=== PATIENT | male | born 1950 | race Caucasian/White ===

== ENCOUNTER 2021-11-27 16:29 | Inpatient (IN) | payer OTHER ==
[~2021-11-27] VITALS: Ht 167.6 cm; Wt 66.2 kg
[~2021-11-27 16:29] MED LIST: ETOMIDATE 2MG/ML 10ML VIAL IV ONE; SUCCINYLCHOLINE CHLORIDE 200MG/10ML IV ONE
[2021-11-27] MEDS ORDERED: SODIUM CHLORIDE 0.9% 1000ML BAG (SEPSIS BOLUS) IV ONE (16:45)
[2021-11-27] MEDS ORDERED: PROPOFOL 10MG/ML 100ML 100 ML IV ONE ×2 (16:45→19:30)
[2021-11-27] MEDS ORDERED: SUCCINYLCHOLINE CHLORIDE 200MG/10ML IV ONE (16:45)
[2021-11-27] MEDS ORDERED: ETOMIDATE 2MG/ML 10ML VIAL IV ONE (16:45)
[2021-11-27] MEDS ORDERED: ACETAMINOPHEN 650MG SUPP PR ONE (16:45)
[2021-11-27 16:59] LABS: BASOPHILS % 0.7 % (0.0-2.0); EOSINOPHILS % 6.5 % (0.0-5.0); HEMATOCRIT. 48.7 % (42.0-52.0); HEMOGLOBIN. 16.1 g/dL (14.0-18.0); LYMPHOCYTES % 27.4 % (20.0-50.0); MEAN CORPUSCULAR HEMOGLOBIN 29.6 pg (28.0-32.0); MEAN CORPUSCULAR VOLUME 89.7 fL (80.0-94.0); MEAN PLATELET VOLUME 7.9 fl (7.4-10.4); MONOCYTES % 7.4 % (2.0-8.0); PLATELET 300 x1000/uL (130-400); RED BLOOD CELL COUNT 5.43 mill/uL (4.7-6.1); RED CELL DISTRIBUTION WIDTH 13.4 % (11.6-14.6)
[2021-11-27 17:07] LABS: CHLORIDE 101 mEq/L (98-107)
[2021-11-27 17:15] LABS: CREATINE KINASE 375 IU/L (39-308)
[2021-11-27] MEDS ORDERED: MIDAZOLAM 100MG/100ML PREMIX IV PRN (17:30)
[2021-11-27] MEDS ORDERED: MIDAZOLAM HCL 100 MG in DEXT 5% WATER 80 ML IV ONE (17:30)
[2021-11-27] MEDS ORDERED: FENTANYL CITRATE/PF 50MCG/ML 2ML VIAL IV ONE ×2 (17:30)
[2021-11-27] MEDS ORDERED: IPRATROPIUM/ALBUTEROL 0.5-3(2.5)MG/3ML NEB HHN ONE (17:30)
[2021-11-27 17:53] LABS: BG CARBOXYHEMOGLOBIN 0.3 % (0.5-1.5); BG DEOXYHEMOGLOBIN 0.6 % (0.0-5.0); BG FRACTION INSPIRED OXYGEN 100; BG HCO3 ACT 25.4 mmol/L (22.0-26.0); BG METHEMOGLOBIN 0.5 % (0.0-1.5); BG OXYGEN SATURATION 99.4 % (92.0-98.5); BG OXYHEMOGLOBIN 98.6 % (94.0-97.0); BG PCO2 64.5 mmHg (35.0-45.0); BG PH 7.213 (7.350-7.450); BG PO2 484.7 mmHg (75.0-100.0); BG SAMPLE SITE RIGHT RADIAL; BG TOTAL HEMOGLOBIN 16.2 g/dL (12.0-18.0); BG VENT MODE VENT - AC
[2021-11-27] MEDS ORDERED: DOCUSATE SODIUM 100MG CAPSULE PO PRN (21:00)
[2021-11-27] MEDS ORDERED: ALBUTEROL 6.7GM HFA INHALER ORI PRN (21:00)
[2021-11-27] MEDS ORDERED: ACETAMINOPHEN 325MG TABLET PO PRN (21:00)
[2021-11-27] MEDS ORDERED: MAGNESIUM/ALUMINUM HYDROXIDE/SIMETHICONE 30ML UDC PO PRN (21:00)
[2021-11-27] MEDS ORDERED: NITROGLYCERIN 0.4MG TABLET SL SL PRN (21:00)
[2021-11-27] MEDS ORDERED: NOREPINEPHRINE 8 MG in DEXT 5% WATER 242 ML IV PRN (21:00)
[2021-11-27] MEDS ORDERED: IPRATROPIUM/ALBUTEROL 0.5-3(2.5)MG/3ML NEB NEB PRN (21:00)
[2021-11-27] MEDS ORDERED: GUAIFENESIN 200MG/10ML SUGAR FREE UDC PO PRN (21:00)
[2021-11-27] MEDS ORDERED: FENTANYL CITRATE/PF 2,500 MCG in SODIUM CHLORIDE 0.9% 200 ML IV PRN (21:30)
[2021-11-27] MEDS ORDERED: PHENYLEPHRINE 100 MG in DEXT 5% WATER 240 ML IV PRN (21:45)
[2021-11-27] MEDS ORDERED: METHYLPREDNISOLONE SOD SUCC 125 MG/2 ML VIAL IV ONE (21:45)
[2021-11-27] MEDS ORDERED: MAGNESIUM 2 G PREMIX 50 ML IV ONE (21:45)
[2021-11-27] MEDS ORDERED: ALBUTEROL 6.7GM HFA INHALER ORI SCH (22:00)
[2021-11-27] MEDS ORDERED: ENOXAPARIN 40MG/0.4ML SYR SUBCUT SCH (22:00)
[2021-11-27] MEDS ORDERED: PIPERACILLIN/TAZ 3.375G PREMIX 50 ML IV SCH (22:00)
[2021-11-27] MEDS: METHYLPREDNISOLONE SOD SUCC 125 MG/2 ML VIAL IV SCH (22:00)
[2021-11-27 22:20] LABS: BG BASE EXCESS -2.3 mmol/L (-2.0-2.0); BG CARBOXYHEMOGLOBIN 0.3 % (0.5-1.5); BG DEOXYHEMOGLOBIN 0.4 % (0.0-5.0); BG FRACTION INSPIRED OXYGEN 100; BG HCO3 ACT 24.3 mmol/L (22.0-26.0); BG METHEMOGLOBIN 0.5 % (0.0-1.5); BG OXYGEN SATURATION 99.6 % (92.0-98.5); BG OXYHEMOGLOBIN 98.8 % (94.0-97.0); BG PCO2 48.2 mmHg (35.0-45.0); BG PO2 436.1 mmHg (75.0-100.0); BG SAMPLE SITE RIGHT RADIAL; BG TOTAL HEMOGLOBIN 15.4 g/dL (12.0-18.0); BG VENT MODE VENT - AC
[2021-11-27] MEDS: FENTANYL CITRATE/PF 2,500 MCG in SODIUM CHLORIDE 0.9% 200 ML IV PRN (22:23)
[2021-11-27 23:14] LABS: TOTAL IRON BINDING CAPACITY 380 ug/dL (250-450)
[2021-11-27] MEDS ORDERED: VANCOMYCIN 1 G PREMIX 200 ML IV NR (23:30)
[2021-11-27 23:32] LABS: CHLORIDE 104 mEq/L (98-107)
[2021-11-27 23:44] LABS: CREATINE KINASE MB FRACTION 18.9 ng/mL (0.5-3.6)
[2021-11-27 23:53] LABS: CREATINE KINASE 2296 IU/L (39-308)
[2021-11-28] VITALS (58 sets, daily range): BP systolic 85–163; BP diastolic 59–104
[2021-11-28] MEDS: DEXT 5%/LACTATED RINGERS 1,000 ML IV SCH ×2 (01:20→18:13)
[2021-11-28] MEDS: IPRATROPIUM/ALBUTEROL 0.5-3(2.5)MG/3ML NEB HHN SCH ×7 (02:00→23:51)
[2021-11-28] MEDS: PHENYLEPHRINE 100 MG in DEXT 5% WATER 240 ML IV PRN ×3 (02:17→16:17)
[2021-11-28 08:09] LABS: BG BASE EXCESS -0.1 mmol/L (-2.0-2.0); BG CARBOXYHEMOGLOBIN 0.4 % (0.5-1.5); BG DEOXYHEMOGLOBIN 0.6 % (0.0-5.0); BG HCO3 ACT 26.9 mmol/L (22.0-26.0); BG METHEMOGLOBIN 0.6 % (0.0-1.5); BG OXYGEN SATURATION 99.4 % (92.0-98.5); BG OXYHEMOGLOBIN 98.4 % (94.0-97.0); BG PCO2 52.1 mmHg (35.0-45.0); BG SAMPLE SITE RIGHT RADIAL; BG VENT MODE VENT - AC
[2021-11-28] MEDS ORDERED: PANTOPRAZOLE SODIUM 40 MG/VIAL IV SCH (09:00)
[2021-11-28] MEDS ORDERED: ASPIRIN 325MG EC TABLET PO SCH (09:00)
[2021-11-28] MEDS: PIPERACILLIN/TAZOBACTAM 3.375 G in DEXTROSE 5% WATER 50 ML IV SCH ×3 (09:22→22:20)
[2021-11-28] MEDS: ENOXAPARIN 80MG/0.8ML SYR SUBCUT SCH ×2 (09:23→22:23)
[2021-11-28] MEDS: METHYLPREDNISOLONE SOD SUCC 125 MG/2 ML VIAL IV SCH ×3 (09:23→22:20)
[2021-11-28 09:56] LABS: CHLORIDE 103 mEq/L (98-107)
[2021-11-28 09:58] LABS: BASOPHILS % 0.6 % (0.0-2.0); EOSINOPHILS % 3.7 % (0.0-5.0); HEMOGLOBIN. 14.5 g/dL (14.0-18.0); MEAN CORPUSCULAR HEMOGLOBIN 29.7 pg (28.0-32.0); MEAN CORPUSCULAR VOLUME 90.2 fL (80.0-94.0); MEAN PLATELET VOLUME 8.3 fl (7.4-10.4); MONOCYTES % 10.7 % (2.0-8.0); PLATELET 257 x1000/uL (130-400); RED BLOOD CELL COUNT 4.88 mill/uL (4.7-6.1); RED CELL DISTRIBUTION WIDTH 13.3 % (11.6-14.6)
[2021-11-28 10:02] LABS: PHOSPHORUS 3.7 mg/dL (2.5-4.9)
[2021-11-28 10:08] LABS: CREATINE KINASE MB FRACTION 13.8 ng/mL (0.5-3.6)
[2021-11-28] MEDS: MIDAZOLAM HCL 100 MG in SODIUM CHLORIDE 0.9% 80 ML IV PRN (10:11)
[2021-11-28 10:20] LABS: CREATINE KINASE 2742 IU/L (39-308)
[2021-11-28] MEDS: VANCOMYCIN 750 MG PREMIX 150 ML IV SCH ×3 (11:08→22:22)
[2021-11-28] MEDS: LORATADINE 10MG TABLET PO SCH (14:22)
[2021-11-28 15:09] LABS: *AMPHETAMINES SCREEN URINE NEGATIVE (NEGATIVE); *BARBITURATES SCREEN URINE NEGATIVE (NEGATIVE); *BENZODIAZEPINES SCREEN URINE PRESUMTIVE POSITIVE (NEGATIVE); CANNABINOID URINE SCREEN NEGATIVE (NEGATIVE)
[2021-11-28 15:10] LABS: *COCAINE SCREEN URINE NEGATIVE (NEGATIVE); METHADONE URINE SCREEN NEGATIVE (NEGATIVE); OPIATES URINE SCREEN NEGATIVE (NEGATIVE); PHENCYCLIDINE URINE SCREEN NEGATIVE (NEGATIVE)
[2021-11-28] MEDS: FENTANYL CITRATE/PF 2,500 MCG in SODIUM CHLORIDE 0.9% 200 ML IV PRN (15:28)
[2021-11-28] MEDS: MONTELUKAST SODIUM 10MG TABLET PO SCH (17:19)
[2021-11-28] MEDS: ATORVASTATIN CALCIUM 20MG TABLET PO SCH (22:21)
[2021-11-28] MEDS: FAMOTIDINE 20MG/2ML VIAL IV SCH (22:21)
[2021-11-29] VITALS (76 sets, daily range): BP systolic 85–178; BP diastolic 60–108
[2021-11-29] MEDS: IPRATROPIUM/ALBUTEROL 0.5-3(2.5)MG/3ML NEB HHN SCH ×6 (03:08→23:38)
[2021-11-29] MEDS: DEXT 5%/LACTATED RINGERS 1,000 ML IV SCH ×2 (05:27→14:02)
[2021-11-29] MEDS: METHYLPREDNISOLONE SOD SUCC 125 MG/2 ML VIAL IV SCH ×3 (06:00→21:45)
[2021-11-29] MEDS: PIPERACILLIN/TAZOBACTAM 3.375 G in DEXTROSE 5% WATER 50 ML IV SCH ×3 (06:01→21:43)
[2021-11-29] MEDS: MIDAZOLAM HCL 100 MG in SODIUM CHLORIDE 0.9% 80 ML IV PRN (07:42)
[2021-11-29] MEDS: ENOXAPARIN 80MG/0.8ML SYR SUBCUT SCH ×2 (09:18→20:12)
[2021-11-29] MEDS: FAMOTIDINE 20MG/2ML VIAL IV SCH ×2 (09:18→20:10)
[2021-11-29] MEDS: ASPIRIN 81MG EC TABLET PO SCH (09:18)
[2021-11-29] MEDS: LORATADINE 10MG TABLET PO SCH (09:18)
[2021-11-29 09:25] LABS: INR 1.1; PROTHROMBIN TIME 11.9 sec (9.6-11.0)
[2021-11-29] MEDS: VANCOMYCIN 1 G PREMIX 200 ML IV SCH ×2 (10:00→21:44)
[2021-11-29 16:22] LABS: BG BASE EXCESS -1.2 mmol/L (-2.0-2.0); BG CARBOXYHEMOGLOBIN 0.3 % (0.5-1.5); BG DEOXYHEMOGLOBIN 0.6 % (0.0-5.0); BG FRACTION INSPIRED OXYGEN 100; BG HCO3 ACT 23.8 mmol/L (22.0-26.0); BG METHEMOGLOBIN 0.5 % (0.0-1.5); BG OXYGEN SATURATION 99.4 % (92.0-98.5); BG OXYHEMOGLOBIN 98.6 % (94.0-97.0); BG PCO2 40.9 mmHg (35.0-45.0); BG PH 7.382 (7.350-7.450); BG PO2 385.7 mmHg (75.0-100.0); BG SAMPLE SITE RIGHT RADIAL; BG TOTAL HEMOGLOBIN 15.2 g/dL (12.0-18.0); BG VENT MODE MASK - NRB
[2021-11-29] MEDS: MONTELUKAST SODIUM 10MG TABLET PO SCH (17:00)
[2021-11-29] MEDS: ATORVASTATIN CALCIUM 20MG TABLET PO SCH (20:11)
[2021-11-29] MEDS: ACETAMINOPHEN 325MG TABLET PO PRN (20:13)
[2021-11-29] MEDS: CLONIDINE 0.1MG TABLET PO PRN (22:02)
[2021-11-30] VITALS (42 sets, daily range): BP systolic 104–175; BP diastolic 53–123
[2021-11-30] MEDS: DEXT 5%/LACTATED RINGERS 1,000 ML IV SCH ×2 (02:21→16:49)
[2021-11-30] MEDS: IPRATROPIUM/ALBUTEROL 0.5-3(2.5)MG/3ML NEB HHN SCH ×4 (04:11→20:14)
[2021-11-30] MEDS: METHYLPREDNISOLONE SOD SUCC 125 MG/2 ML VIAL IV SCH ×3 (05:22→21:12)
[2021-11-30] MEDS: PIPERACILLIN/TAZOBACTAM 3.375 G in DEXTROSE 5% WATER 50 ML IV SCH ×3 (05:22→21:19)
[2021-11-30 06:20] LABS: HEMATOCRIT. 42.3 % (42.0-52.0); HEMOGLOBIN. 14.1 g/dL (14.0-18.0); MEAN CORPUSCULAR HEMOGLOBIN 29.5 pg (28.0-32.0); MEAN CORPUSCULAR VOLUME 88.7 fL (80.0-94.0); MEAN PLATELET VOLUME 8.6 fl (7.4-10.4); PLATELET 226 x1000/uL (130-400); RED BLOOD CELL COUNT 4.77 mill/uL (4.7-6.1); RED CELL DISTRIBUTION WIDTH 13.3 % (11.6-14.6)
[2021-11-30 06:48] LABS: CHLORIDE 108 mEq/L (98-107)
[2021-11-30] MEDS: ENOXAPARIN 80MG/0.8ML SYR SUBCUT SCH ×2 (08:06→21:12)
[2021-11-30] MEDS: LORATADINE 10MG TABLET PO SCH (08:06)
[2021-11-30] MEDS: ASPIRIN 81MG EC TABLET PO SCH (08:06)
[2021-11-30] MEDS: FAMOTIDINE 20MG/2ML VIAL IV SCH ×2 (08:06→20:57)
[2021-11-30] MEDS: CLONIDINE 0.1MG TABLET PO PRN ×2 (08:37→16:49)
[2021-11-30] MEDS: VANCOMYCIN 1 G PREMIX 200 ML IV SCH ×2 (09:20→21:19)
[2021-11-30] MEDS ORDERED: METOPROLOL SUCCINATE 50MG ER TABLET PO SCH (10:45)
[2021-11-30] MEDS: METOPROLOL TARTRATE 50MG TABLET PO SCH ×2 (10:57→20:59)
[2021-11-30 13:46] LABS: PLATELET ESTIMATE NORMAL
[2021-11-30] MEDS: MONTELUKAST SODIUM 10MG TABLET PO SCH (16:49)
[2021-11-30 18:44] LABS: FOLIC ACID (FOLATE) SERUM >20 ng/mL ng/mL (>5.38)
[2021-11-30 18:55] LABS: VITAMIN B12 SERUM 1088 pg/mL (211-911)
[2021-11-30] MEDS: ATORVASTATIN CALCIUM 20MG TABLET PO SCH (20:57)
[2021-11-30] MEDS: NITROGLYCERIN OINT 1GM/INCH UDPKT TD SCH (23:15)
[2021-12-01] VITALS (46 sets, daily range): BP systolic 124–182; BP diastolic 25–131
[2021-12-01] MEDS: IPRATROPIUM/ALBUTEROL 0.5-3(2.5)MG/3ML NEB HHN SCH ×6 (00:35→22:43)
[2021-12-01] MEDS: ONDANSETRON HCL 4MG/2ML INJ IV PRN ×3 (03:07→13:28)
[2021-12-01] MEDS: METHYLPREDNISOLONE SOD SUCC 125 MG/2 ML VIAL IV SCH ×3 (05:17→21:24)
[2021-12-01] MEDS: PIPERACILLIN/TAZOBACTAM 3.375 G in DEXTROSE 5% WATER 50 ML IV SCH ×3 (05:17→21:24)
[2021-12-01] MEDS: DEXT 5%/LACTATED RINGERS 1,000 ML IV SCH ×2 (05:18→19:20)
[2021-12-01] MEDS: NITROGLYCERIN OINT 1GM/INCH UDPKT TD SCH ×3 (05:19→21:28)
[2021-12-01 05:57] LABS: CHLORIDE 107 mEq/L (98-107)
[2021-12-01] MEDS: CLONIDINE 0.1MG TABLET PO PRN (06:05)
[2021-12-01] MEDS: LORATADINE 10MG TABLET PO SCH (08:09)
[2021-12-01] MEDS: FAMOTIDINE 20MG/2ML VIAL IV SCH ×2 (08:09→21:26)
[2021-12-01] MEDS: METOPROLOL TARTRATE 50MG TABLET PO SCH ×2 (08:09→21:26)
[2021-12-01] MEDS: ASPIRIN 81MG EC TABLET PO SCH (08:09)
[2021-12-01] MEDS: ENOXAPARIN 80MG/0.8ML SYR SUBCUT SCH ×2 (08:10→21:25)
[2021-12-01] MEDS ORDERED: POTASSIUM CHLORIDE INJ 40 MEQ in DEXT 5% WATER 250 ML IV ONE (10:00)
[2021-12-01] MEDS: KCL 20MEQ/100ML PREMIX 100 ML IV SCH ×2 (10:52→13:13)
[2021-12-01] MEDS: VANCOMYCIN 1250MG in DEXTROSE 5% WATER 250ML IV SCH ×2 (10:54→23:26)
[2021-12-01] MEDS: HYDRALAZINE HCL 50MG TABLET PO SCH ×2 (13:13→21:27)
[2021-12-01] MEDS: ACETAMINOPHEN 325MG TABLET PO PRN (13:28)
[2021-12-01] MEDS: MONTELUKAST SODIUM 10MG TABLET PO SCH (17:17)
[2021-12-01] MEDS: ATORVASTATIN CALCIUM 20MG TABLET PO SCH (21:26)
[2021-12-02] VITALS (43 sets, daily range): BP systolic 124–168; BP diastolic 72–120
[2021-12-02] MEDS: IPRATROPIUM/ALBUTEROL 0.5-3(2.5)MG/3ML NEB HHN SCH ×5 (02:19→22:02)
[2021-12-02] MEDS: METHYLPREDNISOLONE SOD SUCC 125 MG/2 ML VIAL IV SCH (05:13)
[2021-12-02] MEDS: PIPERACILLIN/TAZOBACTAM 3.375 G in DEXTROSE 5% WATER 50 ML IV SCH ×3 (05:13→22:58)
[2021-12-02] MEDS: NITROGLYCERIN OINT 1GM/INCH UDPKT TD SCH (05:14)
[2021-12-02] MEDS: HYDRALAZINE HCL 50MG TABLET PO SCH ×3 (05:14→22:03)
[2021-12-02] MEDS: LORATADINE 10MG TABLET PO SCH (08:45)
[2021-12-02] MEDS: METOPROLOL TARTRATE 50MG TABLET PO SCH (08:45)
[2021-12-02] MEDS: FAMOTIDINE 20MG/2ML VIAL IV SCH ×2 (08:45→22:03)
[2021-12-02] MEDS: ACETAMINOPHEN 325MG TABLET PO PRN (08:45)
[2021-12-02] MEDS: ONDANSETRON HCL 4MG/2ML INJ IV PRN (08:45)
[2021-12-02] MEDS: ASPIRIN 81MG EC TABLET PO SCH (08:45)
[2021-12-02] MEDS: DEXT 5%/LACTATED RINGERS 1,000 ML IV SCH ×2 (08:46→22:04)
[2021-12-02] MEDS: ENOXAPARIN 80MG/0.8ML SYR SUBCUT SCH ×2 (08:49→22:04)
[2021-12-02] MEDS: VANCOMYCIN 1250MG in DEXTROSE 5% WATER 250ML IV SCH ×2 (11:41→23:00)
[2021-12-02] MEDS: DILTIAZEM HCL 30MG TABLET PO SCH ×2 (11:41→17:45)
[2021-12-02] MEDS: METHYLPREDNISOLONE SOD SUCC 40 MG/ML VIAL IV SCH (17:45)
[2021-12-02] MEDS: MONTELUKAST SODIUM 10MG TABLET PO SCH (17:45)
[2021-12-02] MEDS: ATORVASTATIN CALCIUM 20MG TABLET PO SCH (22:03)
[2021-12-03] VITALS (9 sets, daily range): BP systolic 128–149; BP diastolic 70–94
[2021-12-03] MEDS: DILTIAZEM HCL 30MG TABLET PO SCH ×4 (00:06→18:00)
[2021-12-03] MEDS: IPRATROPIUM/ALBUTEROL 0.5-3(2.5)MG/3ML NEB HHN SCH ×6 (01:10→20:02)
[2021-12-03] MEDS: HYDRALAZINE HCL 50MG TABLET PO SCH ×3 (05:33→20:48)
[2021-12-03] MEDS: FAMOTIDINE 20MG/2ML VIAL IV SCH ×2 (08:39→20:47)
[2021-12-03] MEDS: LORATADINE 10MG TABLET PO SCH (08:39)
[2021-12-03] MEDS: ENOXAPARIN 80MG/0.8ML SYR SUBCUT SCH ×2 (08:39→20:48)
[2021-12-03] MEDS: METHYLPREDNISOLONE SOD SUCC 40 MG/ML VIAL IV SCH ×2 (08:39→17:59)
[2021-12-03] MEDS: ASPIRIN 81MG EC TABLET PO SCH (08:39)
[2021-12-03] MEDS: DEXT 5%/LACTATED RINGERS 1,000 ML IV SCH (10:48)
[2021-12-03] MEDS ORDERED: FLUT1DIS3 INH (17:23)
[2021-12-03] MEDS ORDERED: APIX5TAB MT (17:23)
[2021-12-03] MEDS ORDERED: MED4 MT (17:23)
[2021-12-03] MEDS: MONTELUKAST SODIUM 10MG TABLET PO SCH (17:59)
[2021-12-03] MEDS: ATORVASTATIN CALCIUM 20MG TABLET PO SCH (20:47)
[2021-12-04] VITALS: BP 130/89
[2021-12-04] MEDS: IPRATROPIUM/ALBUTEROL 0.5-3(2.5)MG/3ML NEB HHN SCH ×5 (00:32→16:12)
[2021-12-04] MEDS: DEXT 5%/LACTATED RINGERS 1,000 ML IV SCH (01:41)
[2021-12-04] MEDS: DILTIAZEM HCL 30MG TABLET PO SCH ×4 (01:41→17:38)
[2021-12-04 04:00] VITALS: BP 111/68
[2021-12-04] MEDS: HYDRALAZINE HCL 50MG TABLET PO SCH ×3 (05:19→20:54)
[2021-12-04 08:00] VITALS: BP 126/77
[2021-12-04] MEDS: LORATADINE 10MG TABLET PO SCH (11:10)
[2021-12-04] MEDS: ENOXAPARIN 80MG/0.8ML SYR SUBCUT SCH ×2 (11:11→20:53)
[2021-12-04] MEDS: ASPIRIN 81MG EC TABLET PO SCH (11:11)
[2021-12-04 12:00] VITALS: BP 125/67
[2021-12-04] MEDS: METHYLPREDNISOLONE SOD SUCC 40 MG/ML VIAL IV SCH ×2 (12:50→17:36)
[2021-12-04] MEDS: FAMOTIDINE 20MG/2ML VIAL IV SCH ×2 (12:50→20:54)
[2021-12-04 15:56] VITALS: BP 128/84
[2021-12-04] MEDS: MONTELUKAST SODIUM 10MG TABLET PO SCH (17:37)
[2021-12-04 20:55] LABS: CHLORIDE 104 mEq/L (98-107)
[2021-12-04] MEDS: ATORVASTATIN CALCIUM 20MG TABLET PO SCH (21:00)
[2021-12-05] VITALS: BP 122/78
[2021-12-05] MEDS: DILTIAZEM HCL 30MG TABLET PO SCH ×3 (01:17→13:18)
[2021-12-05 04:00] VITALS: BP 118/86
[2021-12-05] MEDS: HYDRALAZINE HCL 50MG TABLET PO SCH (05:01)
[2021-12-05 08:00] VITALS: BP 128/78
[2021-12-05] MEDS: IPRATROPIUM/ALBUTEROL 0.5-3(2.5)MG/3ML NEB HHN SCH ×2 (08:06→12:05)
[2021-12-05] MEDS: LORATADINE 10MG TABLET PO SCH (10:52)
[2021-12-05] MEDS: ASPIRIN 81MG EC TABLET PO SCH (10:52)
[2021-12-05] MEDS: ENOXAPARIN 80MG/0.8ML SYR SUBCUT SCH (10:53)
[2021-12-05] MEDS: METHYLPREDNISOLONE SOD SUCC 40 MG/ML VIAL IV SCH (10:54)
[2021-12-05] MEDS: FAMOTIDINE 20MG/2ML VIAL IV SCH (11:06)
[2021-12-05] MEDS ORDERED: POTASSIUM CHLORIDE 20MEQ TABLET SR PO SCH (11:15)
[2021-12-05 12:00] VITALS: BP 124/90
[2021-12-05 13:46] VITALS: BP 128/78
== END 2021-12-05 15:35 | disposition home or self-care (01) | DRG 871 ==
LOC: ER 16:29 → EDBEDREQ 18:59 → EDBEDREQTM 18:59 → SUPCPDRO 21:17 → MICUSO 11-28 00:55 → MICUNO 11-29 00:33 → 5WST 12-03 01:54
PROVIDERS: ADMIT Internal Medicine; ATTEND Internal Medicine
PROC: 5A1945Z Respiratory Ventilation, 24-96 Consecutive Hours (ICD-10-PCS; principal; 2021-11-27)
PROC: 0BH17EZ Insertion of Endotracheal Airway into Trachea, Via Natural or Artificial Opening (ICD-10-PCS; 2021-11-27)
DX: A41.9 Sepsis, unspecified organism (principal); R65.21 Severe sepsis with septic shock; G92.8 Other toxic encephalopathy; J96.01 Acute respiratory failure with hypoxia; J96.02 Acute respiratory failure with hypercapnia; J18.9 Pneumonia, unspecified organism; I21.4 Non-ST elevation (NSTEMI) myocardial infarction; I26.99 Other pulmonary embolism without acute cor pulmonale; M62.82 Rhabdomyolysis; J44.1 Chronic obstructive pulmonary disease with (acute) exacerbation; I47.1 Supraventricular tachycardia; J45.901 Unspecified asthma with (acute) exacerbation; J44.0 Chronic obstructive pulmonary disease with (acute) lower respiratory infection; Z99.11 Dependence on respirator [ventilator] status; R74.01 Elevation of levels of liver transaminase levels; D72.10 Eosinophilia, unspecified; I45.10 Unspecified right bundle-branch block; Z20.822 Contact with and (suspected) exposure to COVID-19; Z79.01 Long term (current) use of anticoagulants; Z78.9 Other specified health status; Z86.16 Personal history of COVID-19; Z86.711 Personal history of pulmonary embolism
CPT/HCPCS: 31500; 36415; 36600; 70551; 71045; 71275; 80048; 80053; 80202; 80305; 82375; 82550; 82553; 82607; 82746; 82805; 82962; 83540; 83550; 83605; 83735; 84100; 84145; 84443; 84484; 85025; 87070; 92610; 93306; 93970; 94002; 94003; 94640; 97162; 97166; 99291; C9113; J0330; J1650; J2250; J2370; J2405; J2543; J2704; J2920; J2930; J3010; J3370; J3475; J3480; J3490; J7030; J7050; J7060; U0003; U0005; A4315

== ENCOUNTER 2022-04-15 22:39 | Emergency (ER) | payer OTHER ==
[~2022-04-15] VITALS: Ht 177.8 cm; Wt 75.0 kg
[~2022-04-15 22:39] MED LIST changes: +APIX5TAB MT; -ETOMIDATE 2MG/ML 10ML VIAL IV ONE; +FLUT1DIS3 INH; +MED4 MT; -SUCCINYLCHOLINE CHLORIDE 200MG/10ML IV ONE
[2022-04-15 23:57] LABS: BASOPHILS % 0.8 % (0.0-2.0); CHLORIDE 101 mEq/L (98-107); EOSINOPHILS % 6.8 % (0.0-5.0); HEMATOCRIT. 41.9 % (42.0-52.0); HEMOGLOBIN. 14.7 g/dL (14.0-18.0); MEAN CORPUSCULAR HEMOGLOBIN 30.3 pg (28.0-32.0); MEAN CORPUSCULAR VOLUME 86.4 fL (80.0-94.0); MEAN PLATELET VOLUME 7.6 fl (7.4-10.4); MONOCYTES % 6.5 % (2.0-8.0); NEUTROPHILS % 57.9 % (40.0-76.0); PLATELET 281 x1000/uL (130-400); RED BLOOD CELL COUNT 4.85 mill/uL (4.7-6.1); RED CELL DISTRIBUTION WIDTH 13.6 % (11.6-14.6)
[2022-04-16] MEDS ORDERED: METHYLPREDNISOLONE SOD SUCC 125 MG/2 ML VIAL IV STA (01:30)
[2022-04-16] MEDS ORDERED: ALBUTEROL (0.083%) 2.5MG/3ML NEB HHN STA (01:30)
[2022-04-16 03:00] VITALS: BP 129/80
[2022-04-16] MEDS ORDERED: ALBU6.7H9 INH (04:26)
[2022-04-16] MEDS ORDERED: P50 MT (04:26)
== END 2022-04-16 05:48 | disposition home or self-care (01) ==
LOC: ER 22:39
DX: J44.1 Chronic obstructive pulmonary disease with (acute) exacerbation (principal)
CPT/HCPCS: 36415; 71045; 80053; 83880; 84484; 85025; 93005; 94640; 96374; 99291; J2930

== ENCOUNTER 2022-04-26 13:55 | Emergency (ER) | payer OTHER ==
[~2022-04-26] VITALS: Ht 172.7 cm; Wt 75.0 kg
[~2022-04-26 13:55] MED LIST changes: +ALBU6.7H9 INH; +P50 MT
[2022-04-26] MEDS ORDERED: ALBUTEROL (0.083%) 2.5MG/3ML NEB HHN STA (17:35)
[2022-04-26] MEDS ORDERED: IPRATROPIUM BROMIDE (0.02%) 0.5MG/2.5ML NEB HHN STA (17:35)
[2022-04-26] MEDS ORDERED: METHYLPREDNISOLONE SOD SUCC 125 MG/2 ML VIAL IV STA (17:35)
[2022-04-26] MEDS ORDERED: METHYLPREDNISOLONE SOD SUCC 125 MG/2 ML VIAL IM ONE (18:00)
[2022-04-26] MEDS ORDERED: P50 MT (19:10)
[2022-04-26 19:17] VITALS: BP 143/90
== END 2022-04-26 19:18 | disposition home or self-care (01) ==
LOC: ER 13:55
DX: J44.1 Chronic obstructive pulmonary disease with (acute) exacerbation (principal); R00.0 Tachycardia, unspecified; R03.0 Elevated blood-pressure reading, without diagnosis of hypertension
CPT/HCPCS: 71045; 93005; 94640; 96372; 99283; J2930

== ENCOUNTER 2022-10-30 03:35 | Inpatient (IN) | payer OTHER ==
[~2022-10-30] VITALS: Ht 165.1 cm; Wt 70.8 kg
[2022-10-30] VITALS (50 sets, daily range): BP systolic 86–124; BP diastolic 64–92
[~2022-10-30 03:35] MED LIST changes: +ALBU6.7H3 INH; -ALBU6.7H9 INH
[2022-10-30] MEDS ORDERED: ALBUTEROL (0.083%) 2.5MG/3ML NEB HHN STA ×2 (03:37→06:16)
[2022-10-30] MEDS ORDERED: MAGNESIUM 2 G PREMIX 50 ML IV STA (03:37)
[2022-10-30] MEDS ORDERED: METHYLPREDNISOLONE SOD SUCC 125 MG/2 ML VIAL IV STA (03:37)
[2022-10-30] MEDS ORDERED: IPRATROPIUM BROMIDE (0.02%) 0.5MG/2.5ML NEB HHN STA ×2 (03:37→06:16)
[2022-10-30] MEDS ORDERED: KETAMINE HCL 50 MG/ML 10ML IV ONE (03:45)
[2022-10-30 05:10] LABS: CHLORIDE 103 mEq/L (98-107)
[2022-10-30] MEDS ORDERED: SODIUM CHLORIDE 0.9% 1,000 ML IV ONE (05:15)
[2022-10-30 05:35] LABS: BASOPHILS % 0.5 % (0.0-2.0); HEMATOCRIT. 47.4 % (42.0-52.0); HEMOGLOBIN. 16.1 g/dL (14.0-18.0); LYMPHOCYTES % 40.4 % (20.0-50.0); MEAN CORPUSCULAR HEMOGLOBIN 30.4 pg (28.0-32.0); MEAN CORPUSCULAR VOLUME 89.4 fL (80.0-94.0); MONOCYTES % 7.6 % (2.0-8.0); NEUTROPHILS % 44.5 % (40.0-76.0); RED CELL DISTRIBUTION WIDTH 13.7 % (11.6-14.6)
[2022-10-30 05:49] LABS: BG BASE EXCESS -8.2 mmol/L (-2.0-2.0); BG CARBOXYHEMOGLOBIN 0.1 % (0.5-1.5); BG DEOXYHEMOGLOBIN 0.4 % (0.0-5.0); BG FRACTION INSPIRED OXYGEN 100; BG HCO3 ACT 24.5 mmol/L (22.0-26.0); BG METHEMOGLOBIN 0.6 % (0.0-1.5); BG OXYGEN SATURATION 99.6 % (92.0-98.5); BG OXYHEMOGLOBIN 98.9 % (94.0-97.0); BG PCO2 87.9 mmHg (35.0-45.0); BG PH 7.063 (7.350-7.450); BG PO2 471.2 mmHg (75.0-100.0); BG SAMPLE SITE RIGHT RADIAL; BG TOTAL HEMOGLOBIN 15.7 g/dL (12.0-18.0); BG VENT MODE MASK - BIPAP
[2022-10-30] MEDS ORDERED: SUCCINYLCHOLINE CHLORIDE 200MG/10ML IV ONE (06:00)
[2022-10-30] MEDS ORDERED: FENTANYL CITRATE/PF 50MCG/ML 2ML VIAL IV ONE (06:00)
[2022-10-30] MEDS ORDERED: PROPOFOL 10MG/ML 100ML 100 ML IV ONE (06:00)
[2022-10-30] MEDS ORDERED: ETOMIDATE 2MG/ML 10ML VIAL IV ONE (06:00)
[2022-10-30 06:04] LABS: MEAN PLATELET VOLUME 8.6 fl (7.4-10.4); PLATELET 304 x1000/uL (130-400)
[2022-10-30] MEDS ORDERED: NOREPINEPHRINE 8MG/250ML PMX 250 ML IV STA (06:46)
[2022-10-30] MEDS ORDERED: NOREPINEPHRINE 8MG/250ML PMX 250 ML IV NR (07:00)
[2022-10-30] MEDS ORDERED: VANCOMYCIN 1G PREMIX 200 ML IV ONE (07:00)
[2022-10-30] MEDS ORDERED: PIPERACILLIN/TAZ 3.375G PREMIX 50 ML IV ONE (07:00)
[2022-10-30 07:49] LABS: CLARITY URINE CLEAR (CLEAR); COLOR URINE YELLOW (YELLOW); KETONES URINE NEGATIVE (NEGATIVE); LEUKOCYTE ESTERASE URINE NEGATIVE (NEGATIVE); NITRITE URINE NEGATIVE (NEGATIVE); OCCULT BLOOD URINE TRACE (NEGATIVE); PH URINE 6.5 (4.5-8.0); PROTEIN URINE 3+ (NEGATIVE); UROBILINOGEN URINE 0.2 E.U./dL (0.2-1.0)
[2022-10-30 09:21] LABS: BG BASE EXCESS -7.5 mmol/L (-2.0-2.0); BG CARBOXYHEMOGLOBIN 0.3 % (0.5-1.5); BG DEOXYHEMOGLOBIN 12.6 % (0.0-5.0); BG HCO3 ACT 22.3 mmol/L (22.0-26.0); BG METHEMOGLOBIN 0.4 % (0.0-1.5); BG OXYGEN SATURATION 87.3 % (92.0-98.5); BG OXYHEMOGLOBIN 86.7 % (94.0-97.0); BG PCO2 63.5 mmHg (35.0-45.0); BG PH 7.164 (7.350-7.450); BG PO2 59.4 mmHg (75.0-100.0); BG SAMPLE SITE RIGHT BRACHIAL; BG TOTAL HEMOGLOBIN 15.7 g/dL (12.0-18.0); BG VENT MODE VENT - AC
[2022-10-30] MEDS ORDERED: AMIODARONE HCL 150 MG in DEXT 5% WATER 100 ML IV NR (10:00)
[2022-10-30] MEDS ORDERED: AMIODARONE HCL 900 MG in DEXT 5% WATER 482 ML IV PRN ×4 (10:15)
[2022-10-30] MEDS: PROPOFOL 10MG/ML 100ML 100 ML IV SCH ×2 (10:40→16:21)
[2022-10-30] MEDS ORDERED: ENOXAPARIN 80MG/0.8ML SYR SUBCUT NR (11:30)
[2022-10-30] MEDS: BLOOD SUGAR DIAGNOSTIC STRIP TEST SCH ×4 (11:42→22:30)
[2022-10-30] MEDS ORDERED: DEXTROSE 50% WATER 50ML SYRINGE IV PRN (11:45)
[2022-10-30] MEDS: METHYLPREDNISOLONE SOD SUCC 40 MG/ML VIAL IV SCH ×2 (11:58→22:36)
[2022-10-30] MEDS ORDERED: SODIUM BICARBONATE 8.4% 1 MEQ/ML 50ML SYR IV NR (12:00)
[2022-10-30] MEDS: PHENYLEPHRINE 50 MG in DEXT 5% WATER 245 ML IV PRN ×2 (12:00→17:53)
[2022-10-30] MEDS: INSULIN LISPRO 100 UNITS/ML SUBCUT SCH ×3 (12:01→22:38)
[2022-10-30] MEDS ORDERED: NOREPINEPHRINE 8 MG in DEXT 5% WATER 242 ML IV PRN (13:00)
[2022-10-30] MEDS: IPRATROPIUM/ALBUTEROL 0.5-3(2.5)MG/3ML NEB HHN SCH ×3 (13:24→20:35)
[2022-10-30 14:24] LABS: BG BASE EXCESS -4.2 mmol/L (-2.0-2.0); BG CARBOXYHEMOGLOBIN 0.9 % (0.5-1.5); BG DEOXYHEMOGLOBIN 1.1 % (0.0-5.0); BG FRACTION INSPIRED OXYGEN 40; BG HCO3 ACT 22.8 mmol/L (22.0-26.0); BG METHEMOGLOBIN 0.3 % (0.0-1.5); BG OXYGEN SATURATION 98.9 % (92.0-98.5); BG OXYHEMOGLOBIN 97.7 % (94.0-97.0); BG PCO2 48.6 mmHg (35.0-45.0); BG PH 7.289 (7.350-7.450); BG PO2 146.3 mmHg (75.0-100.0); BG SAMPLE SITE RIGHT RADIAL; BG TOTAL HEMOGLOBIN 15.7 g/dL (12.0-18.0); BG VENT MODE VENT - AC
[2022-10-30] MEDS ORDERED: ACETAMINOPHEN 325MG TABLET PO PRN (15:00)
[2022-10-30] MEDS ORDERED: MORPHINE SULFATE 2 MG/ML CPJ (NOT FOR IM USE) IV PRN (15:00)
[2022-10-30] MEDS ORDERED: ACETAMINOPHEN 650MG SUPP PR PRN (15:00)
[2022-10-30] MEDS ORDERED: ONDANSETRON HCL 4MG/2ML INJ IV PRN (15:00)
[2022-10-30 15:27] LABS: HEMATOCRIT. 43.6 % (42.0-52.0); HEMOGLOBIN. 14.7 g/dL (14.0-18.0); MEAN CORPUSCULAR HEMOGLOBIN 30.1 pg (28.0-32.0); MEAN CORPUSCULAR VOLUME 88.9 fL (80.0-94.0); MEAN PLATELET VOLUME 8.3 fl (7.4-10.4); PLATELET 261 x1000/uL (130-400); RED CELL DISTRIBUTION WIDTH 13.7 % (11.6-14.6)
[2022-10-30 15:36] LABS: PROTHROMBIN TIME 10.8 sec (9.6-11.0)
[2022-10-30 16:04] LABS: CHLORIDE 102 mEq/L (98-107); PHOSPHORUS 2.5 mg/dL (2.5-4.9)
[2022-10-30 17:21] LABS: PLATELET ESTIMATE NORMAL
[2022-10-30] MEDS ORDERED: IOHEXOL-350 100 ML BOTTLE ONE (17:49)
[2022-10-30] MEDS ORDERED: NOREPINEPHRINE 32 MG in DEXT 5% WATER 218 ML IV PRN (22:30)
[2022-10-30] MEDS: ENOXAPARIN 80MG/0.8ML SYR SUBCUT SCH (22:43)
[2022-10-30] MEDS: PHENYLEPHRINE 100 MG in DEXT 5% WATER 240 ML IV PRN (22:54)
[2022-10-31] VITALS (87 sets, daily range): BP systolic 107–139; BP diastolic 69–104
[2022-10-31] MEDS: PROPOFOL 10MG/ML 100ML 100 ML IV SCH ×2 (00:12→08:18)
[2022-10-31] MEDS: IPRATROPIUM/ALBUTEROL 0.5-3(2.5)MG/3ML NEB HHN SCH ×4 (02:06→20:10)
[2022-10-31] MEDS: METHYLPREDNISOLONE SOD SUCC 40 MG/ML VIAL IV SCH ×3 (04:00→20:46)
[2022-10-31] MEDS: BLOOD SUGAR DIAGNOSTIC STRIP TEST SCH ×4 (06:30→20:46)
[2022-10-31] MEDS: INSULIN LISPRO 100 UNITS/ML SUBCUT SCH ×4 (06:48→20:45)
[2022-10-31] MEDS: ENOXAPARIN 80MG/0.8ML SYR SUBCUT SCH ×2 (08:20→20:46)
[2022-10-31 08:41] LABS: BG DEOXYHEMOGLOBIN 1.7 % (0.0-5.0); BG FRACTION INSPIRED OXYGEN 30; BG HCO3 ACT 24.7 mmol/L (22.0-26.0); BG METHEMOGLOBIN 0.3 % (0.0-1.5); BG OXYGEN SATURATION 98.3 % (92.0-98.5); BG PCO2 36.7 mmHg (35.0-45.0); BG PH 7.446 (7.350-7.450); BG PO2 96.2 mmHg (75.0-100.0); BG SAMPLE SITE RIGHT RADIAL; BG TOTAL HEMOGLOBIN 16.1 g/dL (12.0-18.0); BG VENT MODE VENT - AC
[2022-10-31] MEDS: PHENYLEPHRINE 100 MG in DEXT 5% WATER 240 ML IV PRN (08:41)
[2022-10-31] MEDS: PROPOFOL 10MG/ML 100ML 100 ML IV PRN (17:02)
[2022-11-01] VITALS (89 sets, daily range): BP systolic 99–148; BP diastolic 62–101
[2022-11-01] MEDS: PROPOFOL 10MG/ML 100ML 100 ML IV PRN ×2 (00:35→09:30)
[2022-11-01] MEDS: IPRATROPIUM/ALBUTEROL 0.5-3(2.5)MG/3ML NEB HHN SCH ×3 (02:30→20:16)
[2022-11-01] MEDS: METHYLPREDNISOLONE SOD SUCC 40 MG/ML VIAL IV SCH ×3 (04:40→20:42)
[2022-11-01] MEDS: INSULIN LISPRO 100 UNITS/ML SUBCUT SCH ×4 (06:17→20:43)
[2022-11-01] MEDS: BLOOD SUGAR DIAGNOSTIC STRIP TEST SCH ×4 (06:17→20:43)
[2022-11-01] MEDS: ENOXAPARIN 80MG/0.8ML SYR SUBCUT SCH ×2 (09:35→20:42)
[2022-11-01 11:06] LABS: BG BASE EXCESS 2.9 mmol/L (-2.0-2.0); BG CARBOXYHEMOGLOBIN 0.7 % (0.5-1.5); BG DEOXYHEMOGLOBIN 2.5 % (0.0-5.0); BG HCO3 ACT 26.4 mmol/L (22.0-26.0); BG METHEMOGLOBIN 0.4 % (0.0-1.5); BG OXYGEN SATURATION 97.5 % (92.0-98.5); BG OXYHEMOGLOBIN 96.4 % (94.0-97.0); BG PCO2 37.1 mmHg (35.0-45.0); BG PO2 90.5 mmHg (75.0-100.0); BG SAMPLE SITE RIGHT RADIAL; BG TOTAL HEMOGLOBIN 16.2 g/dL (12.0-18.0); BG VENT MODE VENT - CPAP
[2022-11-01] MEDS: ASPIRIN 81MG TABLET PO SCH (13:45)
[2022-11-01] MEDS: ATORVASTATIN CALCIUM 40MG TABLET PO SCH (20:43)
[2022-11-02] VITALS (30 sets, daily range): BP systolic 99–133; BP diastolic 56–103
[2022-11-02] MEDS: IPRATROPIUM/ALBUTEROL 0.5-3(2.5)MG/3ML NEB HHN SCH ×4 (02:49→20:52)
[2022-11-02 05:28] LABS: BASOPHILS % 0.3 % (0.0-2.0); HEMATOCRIT. 43.3 % (42.0-52.0); HEMOGLOBIN. 14.9 g/dL (14.0-18.0); LYMPHOCYTES % 9.7 % (20.0-50.0); MEAN CORPUSCULAR HEMOGLOBIN 30.4 pg (28.0-32.0); MEAN PLATELET VOLUME 8.6 fl (7.4-10.4); MONOCYTES % 9.8 % (2.0-8.0); NEUTROPHILS % 80.2 % (40.0-76.0); PLATELET 222 x1000/uL (130-400); RED BLOOD CELL COUNT 4.92 mill/uL (4.7-6.1); RED CELL DISTRIBUTION WIDTH 13.5 % (11.6-14.6)
[2022-11-02] MEDS: METHYLPREDNISOLONE SOD SUCC 40 MG/ML VIAL IV SCH ×3 (05:38→21:18)
[2022-11-02 06:11] LABS: CHLORIDE 106 mEq/L (98-107)
[2022-11-02] MEDS: INSULIN LISPRO 100 UNITS/ML SUBCUT SCH ×4 (06:22→21:00)
[2022-11-02] MEDS: BLOOD SUGAR DIAGNOSTIC STRIP TEST SCH ×4 (06:22→21:00)
[2022-11-02] MEDS: METOPROLOL SUCCINATE 50MG ER TABLET PO SCH (09:15)
[2022-11-02] MEDS: ENOXAPARIN 80MG/0.8ML SYR SUBCUT SCH ×2 (09:52→21:00)
[2022-11-02] MEDS: ASPIRIN 81MG TABLET PO SCH (09:52)
[2022-11-02] MEDS: LISINOPRIL 5MG TABLET PO SCH (10:01)
[2022-11-02] MEDS ORDERED: NALOXONE HCL 0.4MG/ML VIAL IV PRN (16:30)
[2022-11-02] MEDS: ATORVASTATIN CALCIUM 40MG TABLET PO SCH (21:17)
[2022-11-03] VITALS: BP 120/79
[2022-11-03] MEDS: IPRATROPIUM/ALBUTEROL 0.5-3(2.5)MG/3ML NEB HHN SCH ×4 (01:36→20:54)
[2022-11-03 04:00] VITALS: BP 126/81
[2022-11-03] MEDS: METHYLPREDNISOLONE SOD SUCC 40 MG/ML VIAL IV SCH ×3 (04:04→21:35)
[2022-11-03] MEDS: BLOOD SUGAR DIAGNOSTIC STRIP TEST SCH ×4 (06:40→21:19)
[2022-11-03] MEDS: INSULIN LISPRO 100 UNITS/ML SUBCUT SCH ×4 (07:05→21:41)
[2022-11-03 08:00] VITALS: BP 120/75
[2022-11-03] MEDS: METOPROLOL SUCCINATE 50MG ER TABLET PO SCH (08:25)
[2022-11-03] MEDS: ASPIRIN 81MG TABLET PO SCH (08:25)
[2022-11-03] MEDS: LISINOPRIL 5MG TABLET PO SCH (08:26)
[2022-11-03] MEDS: ENOXAPARIN 80MG/0.8ML SYR SUBCUT SCH (08:27)
[2022-11-03 12:00] VITALS: BP 118/82
[2022-11-03] MEDS ORDERED: VERAPAMIL HCL 2.5 MG/1 ML 2ML VIAL IV ONE (12:39)
[2022-11-03] MEDS ORDERED: LIDOCAINE HCL/PF 1% 10 MG/ML 5ML VIAL ONE (12:39)
[2022-11-03] MEDS ORDERED: IODIXANOL 320MG/ML 100 ML BOTTLE IV ONE (12:39)
[2022-11-03] MEDS ORDERED: DIPHENHYDRAMINE 50MG/ML VIAL ONE (12:39)
[2022-11-03] MEDS ORDERED: MIDAZOLAM HCL 2 MG/2 ML VIAL ONE (12:54)
[2022-11-03] MEDS ORDERED: FENTANYL CITRATE/PF 50MCG/ML 2ML VIAL ONE (12:54)
[2022-11-03] MEDS ORDERED: HEPARIN 1000 UNITS/ML 10ML ONE (12:54)
[2022-11-03] MEDS ORDERED: ATROPINE SULFATE 1MG/10ML SYR IV PRN (14:00)
[2022-11-03 16:00] VITALS: BP 153/85
[2022-11-03 20:00] VITALS: BP 129/81
[2022-11-03] MEDS: ATORVASTATIN CALCIUM 40MG TABLET PO SCH (21:36)
[2022-11-04] VITALS (7 sets, daily range): BP systolic 113–135; BP diastolic 70–87
[2022-11-04] MEDS: IPRATROPIUM/ALBUTEROL 0.5-3(2.5)MG/3ML NEB HHN SCH ×3 (00:59→13:45)
[2022-11-04] MEDS: METHYLPREDNISOLONE SOD SUCC 40 MG/ML VIAL IV SCH ×2 (05:03→13:33)
[2022-11-04] MEDS: BLOOD SUGAR DIAGNOSTIC STRIP TEST SCH ×3 (06:00→17:43)
[2022-11-04 06:30] LABS: HEMATOCRIT. 46.9 % (42.0-52.0); HEMOGLOBIN. 16.1 g/dL (14.0-18.0); MEAN CORPUSCULAR VOLUME 87.1 fL (80.0-94.0); MEAN PLATELET VOLUME 8.6 fl (7.4-10.4); PLATELET 242 x1000/uL (130-400); RED BLOOD CELL COUNT 5.38 mill/uL (4.7-6.1); RED CELL DISTRIBUTION WIDTH 13.1 % (11.6-14.6)
[2022-11-04] MEDS: INSULIN LISPRO 100 UNITS/ML SUBCUT SCH ×3 (07:20→17:53)
[2022-11-04 07:45] LABS: CHLORIDE 104 mEq/L (98-107)
[2022-11-04] MEDS: LISINOPRIL 5MG TABLET PO SCH (09:38)
[2022-11-04] MEDS: APIXABAN 5 MG TABLET PO SCH ×2 (09:38→17:50)
[2022-11-04] MEDS: METOPROLOL SUCCINATE 50MG ER TABLET PO SCH (09:38)
[2022-11-04 18:08] LABS: PLATELET ESTIMATE NORMAL
[2022-11-05] MEDS ORDERED: METOPROLOL SUCCINATE 50MG ER TABLET PO SCH (09:00)
== END 2022-11-04 19:45 | disposition home or self-care (01) | DRG 208 ==
LOC: ER 03:35 → MICUSO 04:13 → EDBEDREQSVC 07:43 → ENRESERV 08:38 → MICUNO 13:30 → MICUSO 10-31 18:23 → 7EST 11-02 15:11 → 3WST 11-03 17:09
PROVIDERS: ADMIT Internal Medicine; ATTEND Internal Medicine
PROC: 5A1945Z Respiratory Ventilation, 24-96 Consecutive Hours (ICD-10-PCS; principal; 2022-10-30)
PROC: 06HY33Z Insertion of Infusion Device into Lower Vein, Percutaneous Approach (ICD-10-PCS; 2022-10-30)
PROC: B54BZZA Ultrasonography of Right Lower Extremity Veins, Guidance (ICD-10-PCS; 2022-10-30)
PROC: 0BH17EZ Insertion of Endotracheal Airway into Trachea, Via Natural or Artificial Opening (ICD-10-PCS; 2022-10-30)
PROC: 4A023N7 Measurement of Cardiac Sampling and Pressure, Left Heart, Percutaneous Approach (ICD-10-PCS; 2022-11-03)
PROC: B211YZZ Fluoroscopy of Multiple Coronary Arteries using Other Contrast (ICD-10-PCS; 2022-11-03)
DX: J96.01 Acute respiratory failure with hypoxia (principal); I21.A1 Myocardial infarction type 2; I50.21 Acute systolic (congestive) heart failure; J44.1 Chronic obstructive pulmonary disease with (acute) exacerbation; E87.20 Acidosis, unspecified; I42.8 Other cardiomyopathies; I47.1 Supraventricular tachycardia; R57.9 Shock, unspecified; J96.02 Acute respiratory failure with hypercapnia; I50.82 Biventricular heart failure; Z20.822 Contact with and (suspected) exposure to COVID-19; I45.10 Unspecified right bundle-branch block; D72.829 Elevated white blood cell count, unspecified; I25.10 Atherosclerotic heart disease of native coronary artery without angina pectoris; Z86.711 Personal history of pulmonary embolism
CPT/HCPCS: 31500; 36415; 36600; 71045; 71275; 80048; 80053; 81003; 82375; 82805; 82962; 83036; 83605; 83735; 83880; 84100; 84145; 84478; 84484; 85025; 85379; 87070; 87426; 87804; 93005; 93306; 93458; 93970; 94003; 94640; 99285; A6261; C1769; C1887; C1893; J0282; J1200; J1644; J1650; J1815; J2250; J2370; J2543; J2704; J2920; J2930; J3010; J3370; J3475; J3490; J7030; J7060; Q9967; A4315